=== PATIENT | male | born 1985 | race Caucasian/White ===

== ENCOUNTER → 2020-03-26 | Day surgery (SDC) | payer OTHER ==
[~2020-03-26] MED LIST: LEVOTHYROXINE25 MCG PO; OMEPRAZOLE20 MG PO
== END | disposition home or self-care (01) ==
LOC: OR 06:45
DX: K20.0 Eosinophilic esophagitis (principal); F10.10 Alcohol abuse, uncomplicated; E66.3 Overweight; K74.60 Unspecified cirrhosis of liver; E03.9 Hypothyroidism, unspecified; Z88.8 Allergy status to other drugs, medicaments and biological substances; Z80.0 Family history of malignant neoplasm of digestive organs; Z79.899 Other long term (current) drug therapy; Z87.891 Personal history of nicotine dependence; Z68.21 Body mass index [BMI] 21.0-21.9, adult
CPT/HCPCS: J2001; J2704; J7040